=== PATIENT | female | born 1965 | race Two or more races ===

== ENCOUNTER 2019-02-27 09:27 | Emergency (ER) | payer OTHER ==
[~2019-02-27] VITALS: Ht 165.1 cm; Wt 102.5 kg
[~2019-02-27 09:27] MED LIST: AMOX1TAB12 PO; INTESTINEX1 CAP PO; LISINOPRIL20 MG PO; METFORMIN HCL500 MG PO; NABUMETONE500 MG PO; NASONEX17 GM NS; PERCOCET 5/3251 TAB PO; ZYRTEC10 MG PO
== END 2019-02-27 15:10 | disposition home or self-care (01) ==
LOC: ER 09:27
DX: S30.0XXA Contusion of lower back and pelvis, initial encounter (principal); S70.02XA Contusion of left hip, initial encounter; M54.2 Cervicalgia; M62.838 Other muscle spasm; R53.81 Other malaise; V49.88XA Car occupant (driver) (passenger) injured in other specified transport accidents, initial encounter; Y93.89 Activity, other specified; Y92.488 Other paved roadways as the place of occurrence of the external cause; Y99.8 Other external cause status